=== PATIENT | female | born 1995 | race Two or more races ===

== ENCOUNTER 2017-10-16 10:11 | Emergency (ER) | payer MEDICAID ==
[2017-10-16] MEDS ORDERED: NS 1,000 ML IV ONE (10:13)
--- NOTE | 2017-10-16 10:19 | EDPHY ---
H & P Time Seen by Provider: 10/16/17 10:13 Constitutional: Initial Vital Signs Temperature (C) 37.0 C 10/16/17 10:17 Heart Rate 85 10/16/17 10:17 Respiratory Rate 16 10/16/17 10:17 Blood Pressure 155/85 H 10/16/17 10:17 O2 Sat (%) 97 10/16/17 10:17 O2 Delivery Mode Room Air Allergies/Adverse Reactions: No Known Allergies Allergy (Unverified 10/16/17 10:17) Home Medications: Medication Instructions Recorded NK [No Known Home Meds] 10/16/17 Medical Decision Making - Diagnostics Imaging Results: Imaging Impressions Obstetrics Ultrasound 10/16/17 10:14 Impression: 1. There is endometrial thickening, but no gestational sac or intrauterine observed. 2. The ovaries appear normal, with no adnexal mass, torsion, or free fluid. If there is a high clinical concern regarding a possible early , continued surveillance with serial sonograms and quantitative beta hCG values is suggested. Findings were discussed with Dean Law MD at 11:32, on 10/16/2017. Imaging: Discussed imaging studies w/ automotive service writer Radiologist, I viewed and interpreted images myself ED Course/Re-evaluation: CHIEF COMPLAINT: Vaginal bleeding, 6 weeks HISTORY OF PRESENT ILLNESS: The patient is a 22 y/o female , who is around 6 weeks complaining of vaginal bleeding onset this morning. Last night she had some spotting, but this morning the bleeding increased. She currently has very mild abdominal cramping as well. Based on her prior , she believes she is RH negative. Denies fever, chills, chest pain, abdominal, urinary or bowel complaints, numbness or paresthesias. REVIEW OF SYSTEMS: A 10 point review of systems was performed and is negative with the exception of the elements mentioned in the history of present illness. PHYSICAL EXAM: HR, BP, O2 Sat, RR. Temp noted General Appearance: Alert, well hydrated, appropriate, and non-toxic appearing. Head: Atraumatic without scalp tenderness or obvious injury Eyes: Pupils equal, round, reactive to light and accommodation, EOMI, no trauma , no injection. Ears: Clear bilaterally, no perforation, normal landmarks Nose: Atraumatic, no rhinorrhea, clear. Throat: There is no erythema or exudates, no lesions, normal tonsils, mucus membranes moist. Neck: Supple, nontender, no lymphadenopathy. Respiratory: No retractions, no distress, no wheezes, and no accessory muscle use. Lungs are clear to auscultation bilaterally. Cardiovascular: Regular rate and rhythm, no murmurs, rubs, or gallops. Good capillary refill all extremities. Gastrointestinal: Abdomen is soft, nontender, non-distended, no masses, no rebound, no guarding, no peritoneal signs. Musculoskeletal: Normal active ROM of all extremities, atraumatic. Neurological: Alert, appropriate, and interactive. Nonfocal neuro. Skin: No rashes, good turgor, no nodules on palpation. Past medical history: Denies Past surgical history: Denies Family history: Denies Social history: Friend at bedside, lives in [place], DIAGNOSTICS/PROCEDURES/CRITICAL CARE TIME: OB US: No intrauterine , adnexal mass, or free air visualized DIFFERENTIAL DIAGNOSIS: The differential diagnosis for the patient's vaginal bleeding included but was not limited to ectopic , menses, miscarriage, and dysfunctional uterine bleeding. MEDICAL DECISION MAKING: The patient is a 22 y/o female , who is around 6 weeks presenting with vaginal bleeding onset this morning. She has a normal physical exam. Labs and OB US ordered. 1L IV NS and Rhogam administered. 1134: Spoke with Dr. Donovan, radiologist, regarding patient's US. There is no intrauterine , adnexal mass, or free air visualized. 1302: Patient has a positive HCG quant of 125. Patient could have an early that is unable to be seen on ultrasound. 1305: Consulted with Dr. Santoyo, [employer], regarding patient. He agrees to see this patient as an outpatient. The patient will need to repeat her HCG on Tuesday, 2 days from now, prior to outpatient follow up. 1315: Reassessed patient and discussed imaging and laboratory findings. She is comfortable with plan for [employer] followup and repeat quant. Return precautions provided. - Data Points Laboratory Results: Laboratory Results 10/16/17 10:50 10/16/17 11:30 10/16/17 10/16/17 10/16/17 12:00 11:30 10:50 WBC RBC Hgb Hct MCV MCH MCHC RDW Plt Count MPV Neut % (Auto) Lymph % (Auto) [place] % (Auto) Eos % (Auto) Baso % (Auto) Nucleat RBC Rel Count Absolute Neuts (auto) Absolute Lymphs (auto) Absolute Monos (auto) Absolute Eos (auto) Absolute Basos (auto) Absolute Nucleated RBC Immature Gran % Immature Gran # Sodium 142 mEq/L mEq/L (135-145) Potassium 3.3 mEq/L mEq/L (3.3-5.0) Chloride 110 mEq/L mEq/L (97-110) Carbon Dioxide 22 mEq/l mEq/l (22-31) Anion Gap 10 mEq/L mEq/L (8-16) BUN 5 mg/dL L mg/dL (7-23) Creatinine 0.5 mg/dL L mg/dL (0.6-1.0) Estimated GFR > 60 Glucose 105 mg/dL H mg/dL (70-100) Calcium 8.2 mg/dL L mg/dL (8.5-10.4) Beta HCG, Quant 125.54 mIU/mL H mIU/mL (0.00-4.83) Patient ABO/Rh O POSITIVE 10/16/17 10/16/17 10:50 10:50 WBC 7.92 10^3/uL 10^3/uL (3.80-9.50) RBC 4.69 10^6/uL 10^6/uL (4.18-5.33) Hgb 14.0 g/dL g/dL (12.6-16.3) Hct 39.6 % % (38.0-47.0) MCV 84.4 fL fL (81.5-99.8) MCH 29.9 pg pg (27.9-34.1) MCHC 35.4 g/dL g/dL (32.4-36.7) RDW 13.1 % % (11.5-15.2) Plt Count 303 10^3/uL 10^3/uL (150-400) MPV 10.5 fL fL (8.7-11.7) Neut % (Auto) 64.0 % % (39.3-74.2) Lymph % (Auto) 27.9 % % (15.0-45.0) [place] % (Auto) 4.0 % L % (4.5-13.0) Eos % (Auto) 3.2 % % (0.6-7.6) Baso % (Auto) 0.8 % % (0.3-1.7) Nucleat RBC Rel Count 0.0 % % (0.0-0.2) Absolute Neuts (auto) 5.07 10^3/uL 10^3/uL (1.70-6.50) Absolute Lymphs (auto) 2.21 10^3/uL 10^3/uL (1.00-3.00) Absolute Monos (auto) 0.32 10^3/uL 10^3/uL (0.30-0.80) Absolute Eos (auto) 0.25 10^3/uL 10^3/uL (0.03-0.40) Absolute Basos (auto) 0.06 10^3/uL 10^3/uL (0.02-0.10) Absolute Nucleated RBC 0.00 10^3/uL 10^3/uL (0-0.01) Immature Gran % 0.1 % % (0.0-1.1) Immature Gran # 0.01 10^3/uL 10^3/uL (0.00-0.10) Sodium REJ Potassium Not Reported Chloride Not Reported Carbon Dioxide Not Reported Anion Gap Not Reported BUN Not Reported Creatinine Not Reported Estimated GFR Not Reported Glucose Not Reported Calcium Not Reported Beta HCG, Quant REJ Patient ABO/Rh Medications Given: Discontinued Medications Sodium Chloride (Ns) 1,000 mls @ 0 mls/hr IV ONCE ONE; Wide Open PRN Reason: Protocol Stop: 10/16/17 10:14 Last Admin: 10/16/17 10:59 Dose: 1,000 mls Departure - Departure Disposition: Home, Routine, Self-Care Clinical Impression: Dysmenorrhea, Vaginal bleeding in Condition: Good Instructions: Dysfunctional Uterine Bleeding (ED), First Trimester Vaginal Bleed (ED) Additional Instructions: 1. Have a repeat HCG quant on 10/18/17. 2. Follow up with Dr. Santoyo, [employer], on Tuesday afternoon. 3. Return to the Emergency Department for fever, worsening pain, abdominal cramping or failure to improve within 72 hours. Referrals: NONE *PRIMARY CARE P,. [Primary Care Provider] - As per Instructions Regan Santoyo MD [Medical Doctor] - As per Instructions Report Scribed for: Dean Law Report Scribed by: Elsa Mejia Date of Report: 10/16/17 Time of Report: 10:17
[2017-10-16 11:20] LABS: PLATELET COUNT 303 10^3/uL (150-400)
[2017-10-16 13:27] VITALS: BP 127/77
== END 2017-10-16 13:26 | disposition home or self-care (01) ==
DX: O20.8 Other hemorrhage in early pregnancy (principal); E86.9 Volume depletion, unspecified; Z3A.00 Weeks of gestation of pregnancy not specified